=== PATIENT | female | born 2000 | race Caucasian/White ===

== ENCOUNTER 2024-09-24 08:38 | Emergency (ER) | payer BC ==
[2024-09-24] MEDS ORDERED: NS 1,000 ML IV ONE (09:00)
[2024-09-24 09:40] LABS: BASO # 0.01 K/mm3 (0.02-0.10); EOS # 0.04 K/mm3 (0.04-0.40); EOS % 0.6 % (1.0-5.0); HEMATOCRIT 43.2 % (37.0-47.0); LYMPH# 0.81 K/mm3 (1.50-4.00); MEAN CELL VOLUME 87 fl (78-100); MEAN CORPUSCULAR HEMOGLOBIN 28 pg (27-31); MEAN CORPUSCULAR HGB CONC 32 g/dL (33-37); MEAN PLATELET VOLUME 10.6 fl (7.4-10.4); MONO # 0.64 K/mm3 (0.20-0.80); NEU # 4.81 K/mm3 (1.40-6.50); PLATELET COUNT 284 K/mm3 (130-400); RED BLOOD COUNT 4.95 M/mm3 (4.10-5.30); RED CELL DISTRIBUTION WIDTH 13.4 % (11.5-14.5); WHITE BLOOD COUNT 6.3 K/mm3 (4.8-10.8)
[2024-09-24 09:45] LABS: ALBUMIN 4.3 g/dL (3.5-5.0); SODIUM 140 mmol/L (136-145)
[2024-09-24 09:46] LABS: CALCIUM 9.2 mg/dL (8.3-10.5)
[2024-09-24 09:48] LABS: GLUCOSE 79 mg/dL (65-105); TOTAL PROTEIN 7.6 g/dL (6.4-8.3)
[2024-09-24 09:49] LABS: CARBON DIOXIDE 18 mmol/L (22-29); TOTAL BILIRUBIN 0.2 mg/dL (0.2-1.2)
[2024-09-24 09:53] LABS: AST-SGOT 23 U/L (5-34)
[2024-09-24 09:54] LABS: ALT/SGPT 32 U/L (0-55)
[2024-09-24 10:02] LABS: TROPONIN-I < 0.030 ng/mL (0.00-0.033)
[2024-09-24 10:59] VITALS: BP 127/88
[2024-09-24] MEDS ORDERED: ZOFRAN ODT4 MG PO (11:01)
== END 2024-09-24 11:10 | disposition home or self-care (01) ==
LOC: ED 08:38
PROVIDERS: Family Medicine
DX: J10.1 Influenza due to other identified influenza virus with other respiratory manifestations (principal)
CPT/HCPCS: J7030